=== PATIENT | male | born 1950 | race Caucasian/White ===

== ENCOUNTER 2021-07-15 08:13 | Day surgery (SDC) | payer OTHER, BC ==
[2021-07-11 10:40] VITALS: BMI 42.2
[2021-07-15 08:43] VITALS: TEMP 97.6
[2021-07-15] MEDS ORDERED: ETOMIDATE 20 MG/10 ML AMPUL IVPUSH ONE (09:31)
[2021-07-15 10:32] VITALS: BP 121/74; PULSE 76
== END 2021-07-15 10:40 | disposition home or self-care (01) ==
LOC: FASU-ENDO 08:13
PROVIDERS: ATTEND Internal Medicine Gastroenterology
PROC: 0DJD8ZZ Inspection of Lower Intestinal Tract, Via Natural or Artificial Opening Endoscopic (ICD-10-PCS; principal; 2021-07-15 09:34)
DX: Z86.010 Personal history of colon polyps (principal); Z80.0 Family history of malignant neoplasm of digestive organs
CPT/HCPCS: 82962

== ENCOUNTER 2021-08-07 18:52 | Emergency (ER) | payer OTHER, BC ==
[2021-08-07 19:14] VITALS: BP 118/77; PULSE 92; TEMP 98; BMI 44.6
== END 2021-08-07 20:30 | disposition home or self-care (01) ==
LOC: FER 18:52
DX: S01.01XA Laceration without foreign body of scalp, initial encounter (principal); W19.XXXA Unspecified fall, initial encounter
CPT/HCPCS: 70450-TC; 99284-25

== ENCOUNTER 2021-08-17 20:55 | Emergency (ER) | payer OTHER, BC ==
[2021-08-17 21:02] VITALS: BP 121/77; PULSE 84; TEMP 98.5; BMI 44.8
== END 2021-08-17 22:20 | disposition home or self-care (01) ==
LOC: FER 20:55
DX: S23.41XA Sprain of ribs, initial encounter (principal); X50.0XXA Overexertion from strenuous movement or load, initial encounter; Z48.02 Encounter for removal of sutures
CPT/HCPCS: 71046-TC-FY; 71101-TC-RT-FY; 99284-25